=== PATIENT | female | born 1960 | race Caucasian/White ===

== ENCOUNTER → 2016-04-28 | Outpatient (CLI) | payer OTHER ==
--- NOTE | 2016-04-28 16:01 | MA ---
Bilateral Digital Screening Mammography Clinical History: 55-year-old female with a history of augmentation mammoplasty, who presents for [facility] annual mammographic screening. The patient's aunt had breast cancer at age 52, and her mother at age 50. Technique: Conventional and Linda digital CC and MLO views of each breast are compared with previou s studies dated April 23, 2015, March 22, 2014, March 21, 2011, March 20, 2010, and [facility] 2008. Additionally, the exam is CAD checked. A cutaneous marker has been placed over a mole on the skin surface of the left breast. An implant mammography consent form was signed. Breast Density: Type B. Computer-Aided Detection Evaluation: Reviewed. Findings: Again noted are bilateral subpectoral breast implants, which are stable in configuration. There is a [id number] residual fibroglandular pattern, which is also reassuringly unchanged. Benign-appearing rounded calcifications are again noted, with a stable collection seen posteriorly in the right breast. There is a stable benign-appearing intramammary lymph node in the outer left [address]. Impression: Benign mammography. BI-RADS Category 2. Recommendation: Routine annual mammographic screening. [facility] will send a result letter to the patient. Negative mammography should not preclude additional work up of a clinically suspicious finding. The patient's information is entered into a reminder system with a target due date for her next mammo gram. E:[email or web address]
== END ==
LOC: FIMAGING 09:47
DX: Z12.31 Encounter for screening mammogram for malignant neoplasm of breast (principal); Z80.3 Family history of malignant neoplasm of breast
CPT/HCPCS: G0202

== ENCOUNTER 2016-09-22 23:04 | Emergency (ER) | payer OTHER ==
[2016-09-22 23:11] VITALS: TEMP 98.4
[2016-09-22] MEDS ORDERED: KETOROLAC 15 MG/1 ML SDV IM ONE (23:29)
[2016-09-22] MEDS ORDERED: METHOCARBAMOL 750 MG TAB PO ONE (23:30)
[2016-09-22] MEDS ORDERED: LIDOCAINE 5% 1 EA PATCH TD ONE (23:57)
[2016-09-23] MEDS ORDERED: METHOCARBAMOL 750 MG TAB PO ONE (00:27)
--- NOTE | 2016-09-23 00:27 | EDPHY ---
H & P Stated Complaint: left lower back pain severe with radiation to left hip Source: Patient, Family Exam Limitations: No limitations - Personal History Current Tetanus/Diphtheria Vaccine: Yes Tetanus Vaccine Date: within 10 years - Medical/Surgical History Hx Asthma: Yes Hx Chronic Respiratory Disease: No Hx Diabetes: No Hx Cardiac Disease: No Hx Renal Disease: No Hx Cirrhosis: No Hx Alcoholism: No Hx HIV/AIDS: No Hx Splenectomy or Spleen Trauma: No Other PMH: Factor 5, chronic back pain, osteopenia. PSH: left hip bone spur removal - Social History Smoking Status: Former smoker Time Seen by Provider: 09/22/16 23:14 HPI/ROS: CHIEF COMPLAINT: left-sided low back pain HISTORY OF PRESENT ILLNESS: 55-year-old female presents to the emergency department complaining of acute on chronic left-sided low back pain. Patient and her drove to [place] 1 week ago, she has been doing a lot of walking. Patient reports they went to [facility] and did a ride which increased her back pain. Patient reports for the last week her pain has been increasing, it is worse in the morning, better after lots of walking. She woke up this morning and [place] with worsening pain, difficulty moving. They got in the car and drove 19 hours straight through to [place] and presented to the emergency department. Patient denies loss of control of her bowel or bladder, no saddle anesthesias. No fevers. Patient states she is scheduled for an epidural steroid injection in 2 weeks. Patient took 1 Vicodin at 8:00 a.m. and 1 Vicodin at noon which were not helpful. She has not taken any other medications. REVIEW OF SYSTEMS: A comprehensive 10 point review of systems is otherwise negative aside from elements mentioned in the history of present illness. (Chantal Cosby) - Physical Exam Exam: GEN: Awake, alert, oriented, no acute distress RESP: nl resp effort MSK: Midline lumbar spine tenderness to palpation, left-sided paraspinal lumbar tenderness, left SI joint tenderness to palpation Neuro: 2/4 deep tendon reflexes patellar and Achilles, 5/5 strength bilateral lower extremities SKIN: No break in skin, no rash (Chantal Cosby) Constitutional: Initial Vital Signs Temperature (C) 36.9 C 09/22/16 23:08 Heart Rate 104 H 09/22/16 23:08 Respiratory Rate 18 09/22/16 23:08 Blood Pressure 141/86 H 09/22/16 23:08 O2 Sat (%) 98 09/22/16 23:08 O2 Delivery Mode Room Air Allergies/Adverse Reactions: No Known Allergies Allergy (Unverified 05/03/11 14:18) Home Medications: Medication Instructions Recorded Hydrocodone Bit/Acetaminophen 1 - 2 tab PO Q4-6PRN PRN #11 tab 05/03/11 [Vicodin 5/500] Flexeril 09/22/16 Lidocaine 5% [Lidoderm 5% Patch 1 ea TD DAILY #3 patch 09/23/16 (*)] Methocarbamol [Robaxin 750 mg (*)] 750 mg PO QID PRN #20 tab 09/23/16 Medical Decision Making ED Course/Re-evaluation: Patient is given a dose of IM Toradol, p.o. Robaxin and a Lidoderm patch is placed. She has no evidence cauda equina syndrome or spinal abscess. Patient is feeling better after these medications. She is discharged home with a prescription for lidocaine patches and Robaxin. Patient will follow up with her neurosurgeon next week. She is given strict return precautions for any loss of control of her bowel or bladder, saddle anesthesias or fevers. (Chantal Cosby) Differential Diagnosis: The differential diagnosis for the patient's back pain included but was not limited to musculo-skeletal pain, epidural abscess, herniated disk, spinal fracture, cauda equina and intra-abdominal causes including urinary system. ( Chantal Cosby) Other Provider: PHYSICIAN DOCUMENTATION: The patient was evaluated and managed by the Physician Statistical Modeler. My co- signature indicates that I have reviewed this chart and I agree with the findings and plan of care as documented. I am the secondary supervising physician. (Gabbi Del Real) - Data Points Medications Given: Discontinued Medications Ketorolac Tromethamine (Toradol) 30 mg IM EDNOW ONE Stop: 09/22/16 23:30 Last Admin: 09/22/16 23:55 Dose: 30 mg Lidocaine (Lidoderm 5%) 1 ea TD EDNOW ONE Stop: 09/23/16 23:52 Last Admin: 09/23/16 00:01 Dose: 1 ea Methocarbamol (Robaxin) 750 mg PO EDNOW ONE Stop: 09/22/16 23:31 Last Admin: 09/22/16 23:55 Dose: 750 mg Methocarbamol (Robaxin) 750 mg PO EDNOW ONE Stop: 09/23/16 00:28 Last Admin: 09/23/16 00:30 Dose: 750 mg Departure - Departure Disposition: Home, Routine, Self-Care Clinical Impression: Lumbar radiculitis Condition: Good Instructions: Lumbar Radiculopathy (ED), Lower Back Exercises (ED) Additional Instructions: Take 600 mg of ibuprofen 3 times per day with food, takes methocarbamol every 8 hours as needed for muscle spasms. Ice or heat whichever feels better, gentle range of motion exercises, core strengthening exercises daily. Use Lidocaine patch every 12 hours as needed. Return to the emergency department for any loss of control of your bowel or bladder, numbness to your groin, fevers. Referrals: Gage Jiang MD [Retired Resigned] - As per Instructions Prescriptions: Lidocaine 5% [Lidoderm 5% Patch (*)] 1 ea TD DAILY #3 patch Methocarbamol [Robaxin 750 mg (*)] 750 mg PO QID PRN #20 tab PRN Reason: Spasms
[2016-09-23 00:52] VITALS: BP 136/68; PULSE 77; RESP 20; O2SAT 93
[2016-09-23] MEDS ORDERED: PATCH REMOVAL 1 EA PATCH TD SCH (21:00)
[2016-09-23] MEDS ORDERED: LIDOCAINE 5% 1 EA PATCH TD ONE (23:51)
== END 2016-09-23 00:52 | disposition home or self-care (01) ==
DX: M54.16 Radiculopathy, lumbar region (principal); J45.909 Unspecified asthma, uncomplicated; Z87.891 Personal history of nicotine dependence
CPT/HCPCS: J1885

== ENCOUNTER → 2016-11-29 | Outpatient (CLI) | payer OTHER | LOC: CIMAGING 07:58 | PROVIDERS: ATTEND Internal Medicine Gastroenterology | DX: K80.20 Calculus of gallbladder without cholecystitis without obstruction (principal) | CPT/HCPCS: 76700-PO ==

== ENCOUNTER → 2017-07-09 | Outpatient (CLI) | payer OTHER | LOC: CIMAGING 10:07 | PROVIDERS: ATTEND Family Medicine | DX: Z12.31 Encounter for screening mammogram for malignant neoplasm of breast (principal); Z80.3 Family history of malignant neoplasm of breast ==

== ENCOUNTER → 2018-08-27 | Outpatient (CLI) | payer OTHER | LOC: CIMAGING 12:51 ==